=== PATIENT | female | born 1985 | race Caucasian/White ===

== ENCOUNTER 2019-02-18 14:51 | Emergency (ER) | payer SELFPAY ==
--- NOTE | 2019-02-18 15:52 | ED.PDOC ---
History of Present Illness - General Chief Complaint: Syncope/Near Syncope Stated Complaint: syncope Time Seen by Provider: 02/18/19 15:03 Source: patient Exam Limitations: no limitations - History of Present Illness Initial Comments: Patient presents after a syncopal episode at work about 2.5 hours [employer]. She said the room started spinning and then she passed out. Her coworkers said that she hit her head on the floor. There were no reports of jerking or seizure like motions. The patient said this has not happened before. She denies chest pain before she went down but says that she has had chest congestion for three days due to a cold. She took DayQuil yesterday, Nyquil last night, and Dayquil again today. She has not eaten since 5 pm last night but she says that is normal for her. No other complaints. Timing/Duration: 1-3 hours Severity: moderate Improving Factors: nothing Worsening Factors: nothing Associated Symptoms: other - as in HPI Allergies/Adverse Reactions: Allergies Codeine Allergy (Verified 02/18/19 15:08) Home Medications: Ambulatory Orders NK 02/18/19 Review of Systems - Review of Systems Constitutional: States: no symptoms reported EENTM: States: no symptoms reported Respiratory: States: no symptoms reported Cardiology: States: no symptoms reported Gastrointestinal/Abdominal: States: no symptoms reported Genitourinary: States: no symptoms reported Musculoskeletal: States: no symptoms reported Skin: States: no symptoms reported Neurological: States: see HPI Endocrine: States: no symptoms reported Hematologic/Lymphatic: States: no symptoms reported Past Medical History (General) - Patient Medical History Hx Stroke: No Hx Asthma: Yes Hx Hypertension: No Hx Thyroid Disease: No Hx Diabetes: No Surgical History: tonsillectomy - Vaccination History Hx Tetanus, Diphtheria Vaccination: No Hx Influenza Vaccination: No Hx Pneumococcal Vaccination: No - Social History Hx Tobacco Use: Yes Hx Alcohol Use: No Hx Substance Use: No Hx Substance Use Treatment: No Hx Depression: No - Female History Patient : No Family Medical History - Family History Mother Family History: Unknown Living Status: Unknown Physical Exam - Physical Exam General Appearance: Alert Eye Exam: bilateral normal Ears, Nose, Throat: normal ENT inspection Neck: non-tender, full range of motion, supple Respiratory: lungs clear, normal breath sounds Cardiovascular/Chest: normal peripheral pulses, regular rate, rhythm, no edema Gastrointestinal/Abdominal: normal bowel sounds, non tender, soft Back Exam: normal inspection, no CVA tenderness Extremity: normal range of motion, non-tender, normal inspection 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 No pronator drift. Progress - Progress Progress: 02/18/19 16:46 Laboratory Tests 02/18/19 02/18/19 02/18/19 15:48 15:55 15:55 WBC 7.2 RBC 4.75 Hgb 13.7 Hct 40.2 MCV 84.7 MCH 28.9 MCHC 34.1 RDW 13.1 Plt Count 249 MPV 8.0 Absolute Neuts (auto) 5.20 Absolute Lymphs (auto) 1.40 Absolute Monos (auto) 0.50 Absolute Eos (auto) 0.00 Absolute Basos (auto) 0.00 Neutrophils % 72.4 Lymphocytes % 19.4 L Monocytes % 7.1 Eosinophils % 0.5 L Basophils % 0.6 D-Dimer, Quantitative Sodium 139 Potassium 4.0 Chloride 104 Carbon Dioxide 24 Anion Gap 15.0 BUN 12 Creatinine 0.48 L BUN/Creatinine Ratio 25.0 H Random Glucose 96 Serum Osmolality 277.2 Calcium 9.2 Total Bilirubin 1.9 H AST 17 ALT 16 Alkaline Phosphatase 47 Serum Total Protein 7.2 Albumin 4.3 Globulin 2.9 Albumin/Globulin Ratio 1.5 Urine Color Urine Appearance Urine pH Ur Specific [place] Urine Protein Urine Glucose (UA) Urine Ketones Urine Blood Urine Nitrite Urine Bilirubin Urine Urobilinogen Ur Leukocyte Esterase Urine RBC Urine WBC Ur Epithelial Cells Urine Bacteria Urine HCG, Qual Negative 02/18/19 02/18/19 15:55 16:06 WBC RBC Hgb Hct MCV MCH MCHC RDW Plt Count MPV Absolute Neuts (auto) Absolute Lymphs (auto) Absolute Monos (auto) Absolute Eos (auto) Absolute Basos (auto) Neutrophils % Lymphocytes % Monocytes % Eosinophils % Basophils % D-Dimer, Quantitative 0.19 Sodium Potassium Chloride Carbon Dioxide Anion Gap BUN Creatinine BUN/Creatinine Ratio Random Glucose Serum Osmolality Calcium Total Bilirubin AST ALT Alkaline Phosphatase Serum Total Protein Albumin Globulin Albumin/Globulin Ratio Urine Color Yellow Urine Appearance Sl cloudy Urine pH 6.0 Ur Specific [place] 1.015 Urine Protein Negative Urine Glucose (UA) Negative Urine Ketones 15 H Urine Blood Trace-lysed H Urine Nitrite Negative Urine Bilirubin Negative Urine Urobilinogen 0.2 Ur Leukocyte Esterase Negative Urine RBC 0-1 Urine WBC 0 Ur Epithelial Cells 3-5 Urine Bacteria Rare Urine HCG, Qual EKG showed sinus bradycardia. No ST changes nor T wave inversions. No LBBB. Patient fitted with a 48 hour Holter monitor and given instructions to stop the cold medications. Care instructions given. E.R. warnings given. Questions were elicited and answered. Patient voiced understanding and agreement with the plan. Departure - Departure Clinical Impression: Syncope Disposition: Discharge to Home or Self Care Condition: Good Departure Forms: ED Discharge - Pt. Copy, Patient Portal Self Enrollment Instructions: DI for Syncope in Adults (Fainting) Diet: resume usual diet Activity: increase activity as tolerated Home Medications: Ambulatory Orders NK 02/18/19 Additional Instructions: See a primary care physician next week to review your Holter Monitor results with. Return to the E.R. immediately if you lose consciousness again. Stop taking the cold medications.
--- NOTE | 2019-02-18 16:15 | RAD ---
EXAM DESCRIPTION: Chest,2 Views CLINICAL HISTORY: 33 years Female, syncope COMPARISON: None available. TECHNIQUE: PA and lateral radiographs of the chest were obtained. FINDINGS: Trachea is midline.The cardiomediastinal silhouette is normal in size. The pulmonary vasculature is within normal limits.The lungs are clear with no acute consolidation.No evidence of pleural effusions.No evidence of pneumothorax. IMPRESSION: No acute cardiopulmonary process. Electronically signed by: Justin Adame MD 02/18/2019 4:13 PM CDT
[2019-02-18 17:02] VITALS: BP 123/79; TEMP 97.2; O2SAT 97
== END 2019-02-18 17:08 | disposition home or self-care (01) ==
LOC: ER 14:51
DX: R55 Syncope and collapse (principal); R00.1 Bradycardia, unspecified; J45.909 Unspecified asthma, uncomplicated; Z87.891 Personal history of nicotine dependence; Z88.5 Allergy status to narcotic agent

== ENCOUNTER → 2020-04-16 | Outpatient (CLI) | payer SELFPAY | LOC: LAB.O 11:37 | PROVIDERS: ATTEND Nurse Practitioner | DX: Z32.01 Encounter for pregnancy test, result positive (principal) ==